=== PATIENT | female | born 2000 | race Caucasian/White ===

== ENCOUNTER 2024-02-18 10:04 | Outpatient (CLI) | payer OTHER | END 2024-02-18 10:05 | disposition home or self-care (01) | LOC: RAD 10:04 | PROVIDERS: ATTEND Internal Medicine Critical Care Medicine | DX: R06.00 Dyspnea, unspecified (principal) | CPT/HCPCS: 71046 ==

== ENCOUNTER 2025-05-08 12:10 | Outpatient (CLI) | payer OTHER | END 2025-05-08 12:11 | disposition home or self-care (01) | LOC: ULT 12:10 | PROVIDERS: ATTEND Urology | DX: R39.15 Urgency of urination (principal); R39.11 Hesitancy of micturition | CPT/HCPCS: 76770 ==